=== PATIENT | male | born 1995 | race Caucasian/White ===

== ENCOUNTER 2018-04-21 02:30 | Emergency (ER) | payer OTHER, SELFPAY ==
[2018-04-21] MEDS ORDERED: Ondansetron PF 4 MG/2 ML Vial ONE (02:45)
== END 2018-04-21 04:21 | disposition home or self-care (01) ==
LOC: ERS 02:30
DX: F10.129 Alcohol abuse with intoxication, unspecified (principal); R11.2 Nausea with vomiting, unspecified
CPT/HCPCS: 96361; 96374; J2405